=== PATIENT | male | born 1975 | race Caucasian/White ===

== ENCOUNTER 2020-12-06 07:31 | Outpatient (RCR) | payer OTHER, SELFPAY ==
[2020-10-25 15:10] VITALS: BMI 52.0
--- NOTE | 2020-11-08 12:31 | PCWOUND ---
[facility] NOTE patient did not show up for his appointment, no call was made to cancel.
--- NOTE | 2021-01-03 12:56 | PCWOUND ---
[facility] NOTE patient did not show up for appointment. placed call to reschedule.
== END 2021-01-23 23:59 | disposition home or self-care (01) ==
LOC: ANHWOC 07:31
PROVIDERS: PCP Family Medicine; Visit Provider Podiatrist Foot & Ankle Surgery
DX: E11.621 Type 2 diabetes mellitus with foot ulcer (principal); L97.429 Non-pressure chronic ulcer of left heel and midfoot with unspecified severity; L97.529 Non-pressure chronic ulcer of other part of left foot with unspecified severity
CPT/HCPCS: 99213; 99214; G0463